=== PATIENT | female | born 1950 | race American Indian/Alaskan Native ===

== ENCOUNTER 2017-11-22 13:26 | Outpatient (CLI) | payer MEDICAID, MEDICARE | END 2017-11-22 13:27 | disposition home or self-care (01) | LOC: CARD 13:26 | PROVIDERS: ATTEND Internal Medicine | DX: I10 Essential (primary) hypertension (principal); R00.2 Palpitations | CPT/HCPCS: 93005; 93010 ==

== ENCOUNTER 2022-01-10 11:23 | Emergency (ER) | payer MEDICARE ==
[2022-01-10 11:30] VITALS: BP 170/100
== END 2022-01-10 14:30 | disposition left against medical advice (07) ==
LOC: ED 11:23
DX: I10 Essential (primary) hypertension (principal); Z53.21 Procedure and treatment not carried out due to patient leaving prior to being seen by health care provider